=== PATIENT | female | born 1975 | race Hispanic/Latino ===

== ENCOUNTER 2024-11-04 07:42 | Emergency (ER) | payer OTHER, SELFPAY ==
[2024-11-04 07:46] VITALS: BP 171/90
--- NOTE | 2024-11-04 08:20 | ED.GENMED ---
History of Present Illness
General
Chief Complaint: Back Pain
Source: patient
Exam Limitations: none
Time Seen by Provider: 11/04/24 07:54
Nursing documentation reviewed up to this point in time: agreed with
History of Present Illness
History of Present Illness:
49-year-old female presenting to the emergency department today with concerns for low back pain starting yesterday while sitting. Feels a sharp stabbing made worse with movement of the right lower extremities. Is very positional. Has had a
history of back surgeries in the past. Denies any changes in urination nausea vomiting chest pain or shortness of breath. No abdominal pain.
Past History
Past History
ED Past Surgical History: Appendectomy, Cholecystectomy and
Review of Systems
Review of Systems
Allergies reviewed?: Yes
All Other Systems: ROS reviewed and negative except as documented in HPI and ROS
Phy Exam
Physical Exam
Physical Exam:
GENERAL: Alert , in no apparent distress
EYE: pupils equal and reactive
NECK: Supple, no significant adenopathy.
ENT: o/p clr, mmm.
CARDIAC: Regular rate and rhythm .
LUNGS: Clear breath sounds bilaterally, no acute respiratory distress, no wheezes/rales/rhonchi
ABDOMEN: Soft, without focal tenderness, no r/g, no cvat
NEUROLOGICAL: Alert and oriented, no focal neuro deficits
SKIN: Warm and dry, skin intact.
MUSCULOSKELETAL: No edema, well perfused.
PSYCH: Normal and appropriate interaction.
Course
Orders/Labs/Results
Orders:
Orders
11/04/24 08:05
Ketorolac [Toradol] 30 mg IM NOW STA
Lumbar Spine, 2 or 3 View [CR Lumbar Spine 2 Or 3 Views] Urgent
Comment:
Reason For Exam: low back paion hx surgery
11/04/24 08:30
Urinalysis Reflex To Culture Urgent
Date Specimen was Collected: 11/04/24
Time Specimen was Collected: 08:29
Urine Microscopic Reflex Cult Urgent
11/04/24 09:33
Dexamethasone [Decadron] 10 mg PO NOW STA
Abnormal Lab Results
11/04/24
08:30
Ur Occult Blood Reflex 4+ A
(Negative)
Urine RBC 21-25 A /HPF
(0-2)
Urine Albumin (Reflex) 1+ A
(Neg - Trace)
Vital Signs
Initial and Last Documented VS:
Initial Vital Signs
Temp Pulse Resp BP Pulse Ox
98.2 F 78 16 171/90 98
11/04/24 07:46 11/04/24 07:46 11/04/24 07:46 11/04/24 07:46 11/04/24 07:46
Last Documented Vital Signs
Temp Pulse Resp BP Pulse Ox
98.2 F 78 16 171/90 98
11/04/24 07:46 11/04/24 07:46 11/04/24 07:46 11/04/24 07:46 11/04/24 07:46
MDM/Problems Addressed
MDM/Problems Addressed:
49-year-old female presenting to the emergency department today with concerns of back pain starting while sitting yesterday. Ongoing today made worse with straight leg raise. Blood pressure elevated on arrival otherwise vital signs are normal. No
neurologic symptoms. No red flag symptoms of low back pain. Patient is currently menstruating does have some blood in the urine however symptoms do not seem to be consistent with a kidney stone that is very positional very specifically worse with
movement. No urinary symptoms otherwise. Otherwise here patient in no distress stable for outpatient management return precautions given.
*Critical Care Note
Total Time (30-74mins, 75-104mins- exclusive of procedures): Not Applicable
ED Attending Note
-
Portions of this chart may have been created with voice recognition software.� Occasional wrong word or��sound alike� substitutions may have occurred due to the inherent limitations of voice recognition software.
Discharge Plan
Departure
Patient Disposition: Home (Routine Discharge)
Date of Disposition: 11/04/24
Time of Disposition: 09:35
Patient with high blood pressure during this ER visit?: No
Condition: Good
Covid-19: Not Applicable
Discharge Problem:
Low back pain
Instructions: Low Back Pain (DC)
Prescriptions:
New
tizanidine [Zanaflex] 4 mg capsule
4 mg PO BID PRN (Reason: muscle spasticity) Qty: 7 0RF
meloxicam 15 mg tablet
15 mg PO DAILY Qty: 14 0RF
prednisone 20 mg tablet
40 mg PO DAILY 3 Days Qty: 6 0RF
Referrals:
Ronak Sharp MD [Active] - Follow up in 5-7 days
Rod Combs PA-C [Family Provider] -
Activity Restrictions/Additional Instructions:
You came to the emergency department today with concerns of low back pain. This is likely mechanical back pain. Please take the prescribed medications and follow-up closely as an outpatient for reassessment. Return for any worsening, new or
concerning symptoms.
Interventions
Interventions:
*Risk Screen - Suicide Last Done: 11/04/24 07:46
*General Assessment Last Done: 11/04/24 08:41
*Neglect/Abuse Screening Last Done: 11/04/24 07:46
*ED- Fall Risk Assessment Last Done: 11/04/24 08:41
*ED COVID-19 Vaccine History Last Done: 11/04/24 08:41
ED-Musculoskeletal Assessment Last Done: 11/04/24 08:41
Discharge Date and Time
Print Language: GRENADIAN
[2024-11-04] MEDS: TORADOL 30 MG IM (08:25)
[2024-11-04 08:39] LABS: Urine Albumin 1+ (Neg - Trace); Urine Bilirubin Negative (Negative); Urine Character Clear (Clear); Urine Color Yellow; Urine Glucose Negative (Negative); Urine Ketone Negative (Negative); Urine Leukocyte Negative (Negative); Urine Nitrite Negative (Negative); Urine Occult Blood 4+ (Negative); Urine Urobilinogen Negative (Neg - 1+)
[2024-11-04 09:11] LABS: Urine Red Blood Cell 21-25 /HPF (0-2)
[2024-11-04 09:12] LABS: Urine White Cell 0-2 /HPF (0-5)
[2024-11-04] MEDS: DECADRON 10 MG PO (09:50)
== END 2024-11-04 10:05 | disposition home or self-care (01) ==
LOC: EMR 07:42
PROVIDERS: Physician Assistant; EMERGENCY PHYSICIAN Emergency Medicine; FAMILY PHYSICIAN Physician Assistant Medical
DX: M54.50 Low back pain, unspecified (principal)
CPT/HCPCS: 99284; 96372; 72100; 81003; 81015

== ENCOUNTER → 2024-12-24 10:12 | Outpatient (REF) | payer OTHER, SELFPAY | LOC: PAVMRI 10:12 | PROVIDERS: ATTENDING PHYSICIAN Psychiatry & Neurology Neurology; FAMILY PHYSICIAN Physician Assistant Medical | DX: M54.16 Radiculopathy, lumbar region (principal) | CPT/HCPCS: 72158; A9575 ==